=== PATIENT | male | born 1945 | race Caucasian/White ===

== ENCOUNTER → 2019-02-10 | Outpatient (CLI) | payer BC ==
[~2019-02-10] VITALS: Ht 182.9 cm; Wt 88.5 kg
[~2019-02-10] MED LIST: AMLODIPINE BESY10 MG PO; AVODART0.5 MG PO; CO Q-10100 MG PO; FISH OIL PO; FLOMAX0.4 MG PO; GARLIC1 EACH PO; GREEN PO; HYDROCODON-ACE1 EAC7 PO; LISINOPRIL20 MG PO; PROBIOTIC1 EAC1 PO; PROSTATE CONTR1 EACH PO; UNICOMPLEX M TA1 TA1 PO
--- NOTE | ~2019-02-10 | HPC ---
[facility] [place] [address] PAIN MANAGEMENT CONSULTATION Name: GUANACO SHUKLA Room #: REG ANITA Luna.#: [id number] Admission: 02/10/19 ������������������ Attend Phys: Wan Arizmendi MD Discharge: ������������������ Date of : 45 Report #: [id number] THIS REPORT FOR: //name// CC: Dr. Mayur ECHEVERRIA DATE OF SERVICE: 02/10/2019 CHIEF COMPLAINT: Low back pain radiating into the left leg and hip. HISTORY OF PRESENT ILLNESS: I am seeing the patient today, self-referred to our clinic as a result of the care we provided for his next door neighbor, Jose Luis Kim. He has had ongoing pain in his left buttock since 07/2018. He has sought out extensive treatments, including treatment with the [facility] at the [facility]. He presents today to me with a pain score that varies between 4 and 8/10, described as a sharp focused pain in the middle of the left buttock that radiates into the hamstring and at times into the posterior medial aspect of his leg. He has failed medial branch nerve blocks initiated first by the [facility], followed by an epidural injection, followed by sacroiliac injection, followed finally by a piriformis injection; none of these providing any lasting relief. He then pursued Acupuncture and is now in the 7 weeks of that and also is undergoing diet modifications in an attempt to manage his pain. MEDICATIONS: Current medications for pain include a short prescription of 30 tablets of hydrocodone, which has currently gone; lisinopril; amlodipine; tamsulosin; dutasteride; CoQ10; fish oil; garlic; prostate complex screens; probiotic and multivitamins. ALLERGIES: None. PAST MEDICAL HISTORY: Significant for colon polyps and hypertension. Otherwise, he has been in excellent health. 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 He denies use of tobacco. He denies use of alcohol. He is . REVIEW OF SYSTEMS: Positive for some fatigue related to pain, hearing loss and nocturia, but is otherwise reported negative by the patient. PHYSICAL EXAMINATION: MUSCULOSKELETAL: He moves from a sitting to standing position, ambulates with mild antalgic features. Spine is nontender. Good range of motion is present, [facility] [address] [place] [address] PAIN MANAGEMENT CONSULTATION Name: GUANACO SHUKLA Room #: REG ANITA SousaMemeCeliaMeme#: [id number] Admission: 02/10/19 ������������������ Attend Phys: Wan Arizmendi MD Discharge: ������������������ Date of : 45 Report #: [id number] but he does reproduce his pain with rotational movements and lateral tilt to the left. There is tenderness in the left buttock cheek. Straight leg raising reproduces pain in the buttock and some radiation down the posterior aspect of the leg, but no further than the popliteal fossa. There is no calf numbness, tingling, weakness or pain. No pain in the foot. Sensation is intact. Good general strength is noted. CHEST: Clear. CARDIAC: Rhythm is regular. ABDOMEN: Soft. IMAGING DATA: An x-ray of the spine is reviewed. It shows moderate degenerative disk height loss at L2-L3, with lateral recess partially effaced on the left in comparison to a basically grossly normal right side. Also on the left, at L4-L5, is noted a more focal disk protrusion with left lateral recess, causing high-grade effacement of the left lateral recess. There is at least moderate right lateral recess effacement and both foramina are narrowed mildly. There is no significant spinal stenosis at any level. IMPRESSION: I would consider this to be a lumbar radiculopathy, perhaps with the L4-L5 lateral recess causing some impingement upon the bypassing L5 and S1 nerve roots and I would recommend left L4-L5 transforaminal epidural injection as well as physical therapy with Madhav Diaz. I have agreed to provide him with an additional prescription also for hydrocodone, no more than 30 tablets, hydrocodone 5/325 to be taken for severe episodes of pain. Safeguarding medications was discussed. I will not put him on an agreement unless we determine this is a long-term therapy. Side effects of constipation were also reviewed. PROCEDURE: Left L4-L5 transforaminal epidural injection under fluoroscopic guidance. DESCRIPTION OF PROCEDURE: He was taken to the fluoroscopic suite, placed prone and skin prepped with ChloraPrep. Skin anesthetized over the L4-L5 neural foramen. Using triplanar fluoroscopic views, I advanced the needle in the neural foramen and after negative aspiration, I injected 1 mL of Omnipaque. Good spread of dye was seen into the epidural space, followed by 3 mL of 0.5% lidocaine mixed with 80 mg of triamcinolone. He tolerated the procedure well, was observed for 45 minutes and discharged. Pain score was only modestly reduced at discharge. We will see what the longer term response to this injection is. ��������������������������������������������� ���������������������������������������� By: ��������������������������������������������� [id number] Wan Arizmendi MD /nt
[2019-02-10 12:42] VITALS: BP 158/94
--- NOTE | 2019-02-10 12:58 | NUR ---
Pain Clinic Assessment: 1. History of Osteoarthritis: History of Rheumatoid Arthritis: 2. Height: 6 ft. 0 in. 182.9 cm. Weight: 195.0 lb. oz. 88.452 kg. Patient's BMI: 26.4 3. Vital Signs: BP: 158/94 Pulse: 80 Resp: 16 Temp: 02 Sat: 97 ECG Mon: 4. Pain Intensity: 4-8 5. Fall Risk: Dizziness: N Needs help standing or walking: N Fallen in the last 3 months: N Fall risk comments: 6. Patient on Blood Thinner: None 7. History of Hypertension: Y 8. Opioid Therapy greater than 6 weeks: N Opiate Contract Signed: 9. Risk Assessment Tool Provided: LOW 10. Functional Assessment Tool: 11. Recreational Drug Use: Never Drug Type: Tobacco Use: Never Smoker Tobacco Type: Amount or Packs/day: How Many Years: Alcohol Use: No Frequency: Quant:
== END | disposition home or self-care (01) ==
LOC: PAIN 06:49
DX: M54.16 Radiculopathy, lumbar region (principal); G89.29 Other chronic pain; I10 Essential (primary) hypertension; Z86.010 Personal history of colon polyps; Z79.899 Other long term (current) drug therapy; Z98.890 Other specified postprocedural states

== ENCOUNTER → 2019-03-14 | Outpatient (CLI) | payer BC, OTHER ==
[~2019-03-14] VITALS: Ht 182.9 cm; Wt 89.1 kg
--- NOTE | ~2019-03-14 | HPC ---
[facility] [place] [place] [address] PAIN MANAGEMENT CONSULTATION Name: GUANACO SHUKLA Room #: REG ANITA LunaMeme#: [id number] Admission: 03/14/19 ������������������ Attend Phys: Wan Arizmendi MD Discharge: ������������������ Date of : 45 Report #: [id number] THIS REPORT FOR: //name// CC: Dr. Mayur ECHEVERRIA The patient is in pain clinic today for a 15-minute followup visit. Today was mostly about reporting and discussion about future management. He is doing well with his physical therapy and is making progress. He has had good response with Madhav Diaz and his team. He has been much more active and mobile and has goals that have been established. He understands that physical therapy is a slow response. He also feels that he had a good response with epidural injection giving it 40% of the credit for the pain relief that has now been sustained for over 1 month. We discussed a second injection, but I did not feel it was necessary today. PHYSICAL EXAMINATION: He moves easily from sitting to standing position. His gait is mildly antalgic. He has some tenderness across his low back, but this is improved. He has better range of motion of lumbar spine. Negative straight leg raising discomfort today. IMAGING: X-rays show again L4-L5 focal disk protrusion of the left lateral recess causing high-grade effacement of the left lateral recess stenosis. IMPRESSION: Lumbar radiculopathy, left L4-L5 with good response to transforaminal injection and physical therapy. PLAN: He will return to the pain clinic as needed in perhaps 1 month and will consider a second injection at that time. For now, no injections are recommended. ��������������������������������������������� ���������������������������������������� By: ��������������������������������������������� [id number] Wan Arizmendi MD /nt
[2019-03-14 11:30] VITALS: BP 182/91
--- NOTE | 2019-03-14 12:00 | NUR ---
Pain Clinic Assessment: 1. History of Osteoarthritis: Not Applicable History of Rheumatoid Arthritis: Not Applicable 2. Height: 6 ft. 0 in. 182.9 cm. Weight: 196.4 lb. oz. 89.087 kg. Patient's BMI: 26.6 3. Vital Signs: BP: 182/91 Pulse: 70 Resp: 18 Temp: 02 Sat: 97 ECG Mon: 4. Pain Intensity: 3-5 5. Fall Risk: Dizziness: N Needs help standing or walking: N Fallen in the last 3 months: N Fall risk comments: 6. Patient on Blood Thinner: None 7. History of Hypertension: Y 8. Opioid Therapy greater than 6 weeks: N Opiate Contract Signed: 9. Risk Assessment Tool Provided: LOW 10. Functional Assessment Tool: 11. Recreational Drug Use: Never Drug Type: Tobacco Use: Never Smoker Tobacco Type: Amount or Packs/day: How Many Years: Alcohol Use: No Frequency: Quant:
== END ==
LOC: PAIN 08:53
DX: M54.16 Radiculopathy, lumbar region (principal)

== ENCOUNTER → 2019-04-07 | Outpatient (CLI) | payer BC, OTHER ==
[~2019-04-07] VITALS: Ht 182.9 cm; Wt 90.6 kg
[~2019-04-07] MED LIST changes: +TOPROL XL25 MG PO
[2019-04-07 11:06] VITALS: BP 160/94
--- NOTE | 2019-04-07 11:20 | NUR ---
Pain Clinic Assessment: 1. History of Osteoarthritis: Not Applicable History of Rheumatoid Arthritis: Not Applicable 2. Height: 6 ft. 0 in. 182.9 cm. Weight: 199.8 lb. oz. 90.629 kg. Patient's BMI: 27.1 3. Vital Signs: BP: 160/94 Pulse: 78 Resp: 16 Temp: 02 Sat: 98 ECG Mon: 4. Pain Intensity: 4-5 5. Fall Risk: Dizziness: N Needs help standing or walking: N Fallen in the last 3 months: N Fall risk comments: 6. Patient on Blood Thinner: None 7. History of Hypertension: Y 8. Opioid Therapy greater than 6 weeks: N Opiate Contract Signed: 9. Risk Assessment Tool Provided: LOW 10. Functional Assessment Tool: 11. Recreational Drug Use: Never Drug Type: Tobacco Use: Never Smoker Tobacco Type: Amount or Packs/day: How Many Years: Alcohol Use: No Frequency: Quant:
--- NOTE | 2019-04-14 16:33 | HPC ---
[facility] [place] [address] PAIN MANAGEMENT CONSULTATION Name: GUANACO SHUKLA Room #: REG ANITA LunaMeme#: [id number] Admission: 04/07/19 Attend Phys: Wan Arizmendi MD Discharge: Date of : 45 Report #: [id number] THIS REPORT FOR: //name// CC: Physician staff Wan ECHEVERRIA DATE OF SERVICE: 04/07/2019 CHIEF COMPLAINT: Followup visit for left lumbar radiculopathy, L4 distribution. HISTORY OF PRESENT ILLNESS: The patient is returning to pain clinic today for a repeat transforaminal epidural injection. He has a L4-L5 focal disk protrusion with left lateral recess causing a high-grade effacement of the left lateral recess. The transforaminal epidural injection was uncomfortable for him last performed, but he had a very nice response with substantial reductions in pain and had a followup visit on 03/14/2019. The pain has gradually decided to return and he is here today hopeful that we can provide once again pain relief as a result of a transforaminal epidural injection. I reviewed my previous films. We will try to perform the injection a bit more distal in the foramen. There is a fair amount of stenosis and hopefully we can provide it more comfortably for him. PQRS REVIEW: 1. Denies history of osteoarthritis. 2. BMI of 27.1. He is 6-foot tall with a weight of 199.8 pounds. 3. Vital signs: Blood pressure 160/94, heart rate 78, respirations 16. 4. Pain intensity 4-5/10. 5. He is not a fall risk, nor has he fallen in the last 3 months. 6. No blood thinners. 7. History of hypertension, which is important as he developed some increasing blood pressure in the recovery room. He is currently working on managing his blood pressure medications with tighter control with his primary care physician and has a followup visit with them tomorrow. All medications were reviewed and reconciled. He did not take his blood pressure medication this morning nor has he taken it this noon and should take it immediately on return to home. 8. Denies use of opioids. 9. He has completed an opioid risk tool and is considered at low risk. 10. Functional assessment score is 51/70 suggesting a fair amount of interference of his pain with day-to-day activities. 11. He denies use of tobacco and denies use of alcohol. PHYSICAL EXAMINATION: GENERAL: A pleasant gentleman, alert and oriented. VITAL SIGNS: [place] [address] PAIN MANAGEMENT CONSULTATION Name: UGANACO SHUKLA Room #: REG [facility].#: [id number] Admission: 04/07/19 Attend Phys: Wan Arizmendi MD Discharge: Date of : 45 Report #: [id number] EXTREMITIES: He moves from sitting to standing position and ambulates with antalgic features. Straight leg raising is positive following an L4 distribution on the left. There is no pain on the right. Sensation is intact. There is mild weakness noted. He has pain with forward flexion, extension and rotation of the lumbar spine. IMPRESSION: L4 radiculopathy on the left. RECOMMENDATION: Procedure, epidural steroid injection under fluoroscopic guidance using transforaminal approach at L4-L5. PROCEDURE: He was taken to the fluoroscopic suite, placed prone, skin prepped with ChloraPrep. Skin anesthetized over the right L4-L5 neural foramen. Using triplanar fluoroscopic views, I gently advanced the needle into the lateral aspect of the neural foramen and injected 0.25 mL of Omnipaque to demonstrate spread along the pedicle and into the epidural space. This was then followed by an additional 4 mL of 0.5% lidocaine mixed with 80 mg of triamcinolone. He tolerated the procedure well. There was some discomfort during injection as before. His pain score was still 8 in the recovery room. Often times, it diminishes by the use of lidocaine, but it did not for him. This is consistent with his last visit, however. It should be noted that his blood pressure was elevated in the recovery room with a top pressure of 205/112. This is within about 20% of his reported pressures and although concerning, I do not think it is dangerous and I have told him to go home and take his blood pressure medication immediately and consult with his primary care physician as soon as possible. He will monitor his blood pressure at home as well. Although he is not on an opioid agreement, I have provided him with a small prescription of hydrocodone once again. He does not use it regularly and would not be considered as a chronic opioid use patient. He was given 30 tablets of hydrocodone 5/325 to be taken for severe pain episodes, and we may continue to provide this for him intermittently. The importance of safeguarding all medications was discussed with him and I will follow up with him in 1-2 months. <ELECTRONICALLY SIGNED> By: Wan Arizmendi MD 04/14/19 [id number] Wan Arizmendi MD /nt
== END | disposition home or self-care (01) ==
LOC: PAIN 06:56
DX: M54.16 Radiculopathy, lumbar region (principal); G89.29 Other chronic pain; I10 Essential (primary) hypertension; Z79.891 Long term (current) use of opiate analgesic; Z98.890 Other specified postprocedural states; Z79.899 Other long term (current) drug therapy

== ENCOUNTER → 2019-05-16 | Outpatient (CLI) | payer BC, OTHER ==
[~2019-05-16] VITALS: Ht 182.9 cm; Wt 91.4 kg
[2019-05-16 10:20] VITALS: BP 185/88
--- NOTE | 2019-05-16 10:36 | NUR ---
Pain Clinic Assessment: 1. History of Osteoarthritis: Not Applicable History of Rheumatoid Arthritis: Not Applicable 2. Height: 6 ft. 0 in. 182.9 cm. Weight: 201.4 lb. oz. 91.355 kg. Patient's BMI: 27.3 3. Vital Signs: BP: 185/88 Pulse: 73 Resp: 14 Temp: 02 Sat: 98 ECG Mon: 4. Pain Intensity: 3 5. Fall Risk: Dizziness: N Needs help standing or walking: N Fallen in the last 3 months: N Fall risk comments: 6. Patient on Blood Thinner: None 7. History of Hypertension: Y 8. Opioid Therapy greater than 6 weeks: N Opiate Contract Signed: 9. Risk Assessment Tool Provided: LOW 10. Functional Assessment Tool: 11. Recreational Drug Use: Never Drug Type: Tobacco Use: Never Smoker Tobacco Type: Amount or Packs/day: How Many Years: Alcohol Use: No Frequency: Quant:
--- NOTE | 2019-05-19 08:38 | HPC ---
[facility] [place] [address] PAIN MANAGEMENT CONSULTATION Name: GUANACO SHUKLA Room #: REG ANITA LunaMeme#: [id number] Admission: 05/16/19 ������������������ Attend Phys: Wan Arizmendi MD Discharge: ������������������ Date of : 45 Report #: [id number] THIS REPORT FOR: //name// CC: Madhav Diaz Physician staff Wan Merchant DATE OF SERVICE: 05/16/2019 Followup visit for low back pain with radiculopathy L4 distribution. The patient returns to pain clinic today for assessment and reevaluation. He has been undergoing physical therapy with Madhav Diaz and has made some progress. He still has pain, however, and I had to reassure him that his physical therapy will pay dividends both in mobility, stamina and also will help reduce his pain. For the moment, he still has activity-related pain. He has some new swelling in the lower extremities. There is some question if this is vascular or not. He takes Aleve, which he thinks is beneficial. He also takes hydrocodone sparingly, only 1 tablet daily, usually in the evening to help with sleep. He is here today hopeful for renewal of his medication. We have discussed injection therapy and at the moment, he is not interested in going forward with an additional injection. He had a transforaminal epidural injection on 04/07/2019, which may have provided some relief. Although he classified his visit with Madhav Diaz is not making progress, I do believe in reviewing his previous notes from today and my discussion with him that the progresses occurring is just slow. He does seem to have a bit more exercise tolerance than he had previously. PHYSICAL EXAMINATION: Blood pressure ____, heart rate 88, respirations ____, BMI is 27.3. Moves independently from sitting to standing position. His gait is mildly antalgic. He has tenderness across his back and mostly into his left buttock. There is some pain with internal and external rotation. IMPRESSION: Chronic low back pain. Left L4 radiculopathy. We have elected to proceed today with left hip x-ray as a screening test to make sure we are not missing underlying hip arthritis, which can mimic the symptoms of radiculopathy in some patients. I have encouraged him to continue with Madhav Diaz. Prescriptions were [facility] [address] [place] [address] PAIN MANAGEMENT CONSULTATION Name: GUANACO SHUKLA Room #: REG ANITA Hitesh#: [id number] Admission: 05/16/19 ������������������ Attend Phys: Wan Arizmendi MD Discharge: ������������������ Date of : 45 Report #: [id number] provided for him under terms of our agreement. He will carefully safeguard the small amount of medication that he receives. His MME is 5/10. Followup visit planned as needed. ��������������������������������������������� <ELECTRONICALLY SIGNED> ���������������������������������������� By: Wan Arizmendi MD ��������������������������������������������� 05/19/19 [id number] [id number] Wan Arizmendi MD /antolin
== END ==
LOC: PAIN 06:55
DX: M54.16 Radiculopathy, lumbar region (principal)